=== PATIENT | female | born 1990 ===

== ENCOUNTER → 2024-05-26 | Outpatient (CLI) | payer BC ==
[2024-05-26 17:26] LABS: BASO % 0.2 % (0.0-1.0); EOS # 0.1 10*3/uL (0.0-0.4); EOS % 1.6 % (1.0-4.0); HEMATOCRIT 45.1 % (37.0-47.0); MEAN CELL VOLUME 99.3 fl (81.0-99.0); MEAN CORPUSCULAR HGB 31.5 pg (27.0-31.0); MEAN CORPUSCULAR HGB CONC 31.7 g/dl (33.0-37.0); MEAN PLATELET VOLUME 10.1 fl (9.6-12.3); MONO # 0.4 10*3/uL (0.1-1.0); MONO % 6.3 % (3.0-9.0); NEUT % 71.4 % (47.0-73.0); PLATELET COUNT AUTOMATED 244 10*3/uL (130-400); RED BLOOD COUNT 4.54 10*6/uL (4.10-5.10); WHITE BLOOD COUNT 5.5 10*3/uL (4.8-10.8)
[2024-05-26 17:38] LABS: ALKALINE PHOSPHATASE 84 U/L (46-116); BUN 17 mg/dl (9-23); CHLORIDE 108 mmol/L (98-107); CHOLESTEROL 170 mg/dL (<200); LDL CHOLESTEROL 92 mg/dL (9-159); SGPT/ALT 20 U/L (5-49); TOTAL PROTEIN 7.5 gm/dL (6.0-8.0); TRIGLYCERIDES 61 mg/dl (<150)
== END | disposition home or self-care (01) ==
LOC: ZEP 17:12
PROVIDERS: ATTEND Nurse Practitioner Family
DX: Z13.1 Encounter for screening for diabetes mellitus (principal); Z13.220 Encounter for screening for lipoid disorders; Z00.00 Encounter for general adult medical examination without abnormal findings; E04.9 Nontoxic goiter, unspecified